=== PATIENT | female | born 1950 | race Caucasian/White ===

== ENCOUNTER 2017-11-08 15:43 | Emergency (ER) | payer OTHER ==
[~2017-11-08] VITALS: Ht 160 cm; Wt 68.0 kg
[2017-11-08] MEDS ORDERED: PROTONIX 20 MG20 M1 PO (15:54)
[2017-11-08] MEDS ORDERED: OXYBUTYNIN 5 MG5 M2 PO (15:54)
[2017-11-08 16:46] LABS: HEMATOCRIT 42.2 % (37.0-47.0); HEMOGLOBIN 14.1 gm/dL (12.0-15.0); MCH 28.7 pg (26.0-34.0); MCHC 33.5 g/dL (28.0-37.0); MCV 85.5 fL (80.0-100.0); MPV 9.3 fl. (7.2-11.1); NUCLEATED RBCS 0 /100WBC; PLATELET COUNT* 146 thou/uL (150-400); RBC 4.93 mil/uL (4.20-5.00); RDW-CV 14.3 % (10.5-14.5); WBC 5.8 thou/uL (4.0-11.0)
[2017-11-08 17:03] LABS: CALCIUM 8.6 mg/dL (8.5-10.1); POTASSIUM 3.5 mmol/L (3.5-5.1)
[2017-11-08 17:08] LABS: ALBUMIN 3.9 g/dL (3.4-5.0); TOTAL BILIRUBIN 0.6 mg/dL (<0.1-1.0); TOTAL PROTEIN 8.3 g/dL (6.4-8.2)
[2017-11-08 17:11] LABS: INFLUENZA A ANTIGEN None Detected (None Detect)
[2017-11-08 17:27] LABS: ABSOLUTE LYMPHOCYTES 0.6 thou/uL (0.8-5.3); ABSOLUTE MONOCYTES 0.4 thou/uL (0.0-1.2); ABSOLUTE NEUTROPHILS 4.8 thou/uL (1.6-8.1)
[2017-11-08 17:28] LABS: PLATELET ESTIMATE ADEQUATE
[2017-11-08 17:54] LABS: URINE BILIRUBIN NEGATIVE (Negative); URINE BLOOD TRACE (Negative); URINE CLARITY CLEAR; URINE COLOR YELLOW; URINE GLUCOSE-RANDOM NEGATIVE (Negative); URINE KETONES NEGATIVE (Negative); URINE LEUKOCYTES-REFLEX NEGATIVE (Negative); URINE NITRITE-REFLEX NEGATIVE (Negative); URINE PROTEIN TRACE (Negative); URINE SPECIFIC GRAVITY 1.015 (1.005-1.030); URINE UROBILINOGEN 0.2 E.U./dl (0.2-1.0)
[2017-11-08] MEDS ORDERED: ZOFRAN ODT4 MG PO (18:25)
[2017-11-08] MEDS ORDERED: NORCO 5-325 TA1 EACH PO (18:25)
[2017-11-08] MEDS ORDERED: PREDNISONE50 MG PO (18:25)
[2017-11-08 18:36] VITALS: BP 141/67
== END 2017-11-08 18:37 | disposition home or self-care (01) ==
LOC: M.ERS 15:43
PROVIDERS: Personal Emergency Response Attendant
DX: K52.9 Noninfective gastroenteritis and colitis, unspecified (principal); J10.1 Influenza due to other identified influenza virus with other respiratory manifestations; D86.9 Sarcoidosis, unspecified; K21.9 Gastro-esophageal reflux disease without esophagitis; Z88.0 Allergy status to penicillin; Z88.2 Allergy status to sulfonamides

== ENCOUNTER 2020-03-24 14:53 | Emergency (ER) | payer MEDICARE, OTHER ==
[~2020-03-24] VITALS: Ht 160 cm; Wt 68.0 kg
[~2020-03-24 14:53] MED LIST: NORCO 5-325 TA1 EACH PO; OXYBUTYNIN 5 MG5 M2 PO; PREDNISONE50 MG PO; PROTONIX 20 MG20 M1 PO; ZOFRAN ODT4 MG PO
[2020-03-24 15:29] LABS: ABSOLUTE LYMPHOCYTES 1.2 thou/uL (0.8-5.3); ABSOLUTE NEUTROPHILS 10.2 thou/uL (1.6-8.1); BASOPHILS 0.2 %; EOSINOPHILS 0.2 %; HEMATOCRIT 40.9 % (37.0-47.0); HEMOGLOBIN 13.6 gm/dL (12.0-15.0); LYMPHOCYTES 9.9 %; MCH 28.6 pg (26.0-34.0); MCHC 33.3 g/dL (28.0-37.0); MCV 85.9 fL (80.0-100.0); MONOCYTES 8.2 %; MPV 9.5 fl. (7.2-11.1); NUCLEATED RBCS 0 /100WBC; PLATELET COUNT* 234 thou/uL (150-400); POLYS 81.5 %; RBC 4.76 mil/uL (4.20-5.00); RDW-CV 14.3 % (10.5-14.5); WBC 12.5 thou/uL (4.0-11.0)
[2020-03-24 15:34] LABS: CALCIUM 9.1 mg/dL (8.5-10.1); CREATININE 0.9 mg/dL (0.6-1.3); POTASSIUM 3.5 mmol/L (3.5-5.1)
[2020-03-24 15:38] LABS: ALBUMIN 3.9 g/dL (3.4-5.0); TOTAL BILIRUBIN 1.3 mg/dL (<0.1-1.0); TOTAL PROTEIN 8.9 g/dL (6.4-8.2)
[2020-03-24 15:39] LABS: URINE BILIRUBIN NEGATIVE (Negative); URINE BLOOD 2+ (Negative); URINE CLARITY CLEAR; URINE COLOR YELLOW; URINE GLUCOSE-RANDOM NEGATIVE (Negative); URINE KETONES NEGATIVE (Negative); URINE LEUKOCYTES-REFLEX 1+ (Negative); URINE NITRITE-REFLEX NEGATIVE (Negative); URINE PROTEIN 1+ (Negative); URINE UROBILINOGEN 0.2 E.U./dl (0.2-1.0)
[2020-03-24 15:45] LABS: SQUAMOUS >10 Many /LPF (0-3); WBC CLUMPS Few (None Seen)
[2020-03-24 15:46] LABS: URINE WBC-REFLEX 6-15 Few /HPF (0-5)
[2020-03-24 15:50] LABS: CASTS None Seen /LPF (None Seen); CRYSTALS None Seen /LPF (None Seen); MUCUS 4-6 Moderate strn/LPF (None Seen); URINE RBC 3-10 Few /HPF (0-2)
[2020-03-24] MEDS ORDERED: DOXYCYCLINE 10100 M2 PO (17:08)
[2020-03-24] MEDS ORDERED: ZOFRAN ODT4 MG DISSOLVE (17:12)
[2020-03-24 17:22] VITALS: BP 164/89
--- NOTE | 2020-03-25 15:38 | EKG ---
[place] [address] ELECTROCARDIOGRAM REPORT Name: EUGENIA EMMANUEL Room: [facility]#: [id number] Admission: 03/24/20 Attend Phys: Discharge: 03/24/20 Date of : 54 Date of Service: 03/24/20 1520 Report #: [id number] THIS REPORT FOR: //name// [facility] ED Test Date: 2020-03-24 Test Time: 15:20:18 Pat Name: EUGENIA EMMANUEL Department: Room: Gender: [employer]: [facility] : 1950 Requested By: Sal Breaux Order Number: [id number] MD: Dequan Li Measurements Intervals [place] Rate: 87 P: 18 VT: 149 QRS: 1 QRSD: 90 T: 18 QT: 343 QTc: 413 Interpretive Statements Sinus rhythm Left ventricular hypertrophy No previous ECG available for comparison Electronically Signed On 03-25-2020 15:38:08 CDT by Dequan Li [email or web address] <ELECTRONICALLY SIGNED> By: Dequan Li MD, [facility] 03/25/20 1538 D: 070 19 Dequan Li MD, FACC /EPI
== END 2020-03-24 17:23 | disposition home or self-care (01) ==
LOC: M.ERS 14:53
PROVIDERS: Emergency Medicine Emergency Medical Services
DX: J18.9 Pneumonia, unspecified organism (principal); R10.13 Epigastric pain; R10.11 Right upper quadrant pain; K21.9 Gastro-esophageal reflux disease without esophagitis; Z20.828 Contact with and (suspected) exposure to other viral communicable diseases; Z88.0 Allergy status to penicillin; Z88.2 Allergy status to sulfonamides